=== PATIENT | male | born 1990 | race Caucasian/White ===

== ENCOUNTER 2020-01-07 09:46 | Inpatient (IN) | payer MEDICAID, OTHER ==
[~2020-01-07] VITALS: Ht 170.2 cm; Wt 67.5 kg
[2020-01-07 10:42] LABS: AMPHET/METH SCREEN,URINE NEGATIVE (NEGATIVE); BARBITURATE SCREEN, URINE NEGATIVE (NEGATIVE); BENZODIAZEPINES SCREEN,URINE NEGATIVE (NEGATIVE); CANNABINOID SCREEN,URINE POSITIVE (NEGATIVE); COCAINE SCREEN,URINE POSITIVE (NEGATIVE); METHADONE SCREEN, URINE NEGATIVE (NEGATIVE); OPIATE SCREEN,URINE NEGATIVE (NEGATIVE)
[2020-01-07 10:44] LABS: PHENCYCLIDINE SCREEN,URINE NEGATIVE (NEGATIVE)
[2020-01-07 10:52] LABS: BASOPHILS % (AUTO) 0.7 % (0.0-2.0); EOSINOPHILS % (AUTO) 2.6 % (1.0-6.0); HEMATOCRIT 45.5 % (41-53); HEMOGLOBIN 15.7 g/dL (13.5-17.5); LYMPHOCYTES # (AUTO) 1.5 K/uL (1.0-4.8); MEAN CORPUSCULAR HGB CONC 34.5 G/dL (31.0-37.0); MEAN CORPUSCULAR VOLUME 98 fL (80-100); MONOCYTES # (AUTO) 0.3 K/uL (0.1-1.0); MONOCYTES % (AUTO) 5.4 % (2.0-9.0); NEUTROPHILS # (AUTO) 4.3 K/uL (1.8-7.7); NEUTROPHILS % (AUTO) 68.3 % (40.0-70.0); PLATELET COUNT (AUTO) 232 K/uL (150-450); RED BLOOD CELL COUNT(AUTO) 4.63 MIL/uL (4.50-5.90); RED CELL DISTRIBUTION WIDTH 12.4 % (11.5-14.5)
[2020-01-07 10:58] LABS: ANION GAP 10 mmol/L (8-16); CARBON DIOXIDE 28 mmol/L (22-29); CHLORIDE 109 mmol/L (98-107); CREATININE 0.89 mg/dL (0.60-1.30); GLOMERULAR FILTR. RATE CALC > 60 mL/min (>60); GLUCOSE,RANDOM 82 mg/dL (70-110); POTASSIUM 4.2 mmol/L (3.5-5.1); SODIUM SERUM 147 mmol/L (136-145); UREA NITROGEN, BLOOD 10 mg/dL (7-18)
[2020-01-07 11:04] LABS: ALANINE AMINOTRANSFERASE 39 U/L (12-78); ALBUMIN 4.1 g/dL (3.4-5.0); ALKALINE PHOSPHATASE 77 U/L (46-116); ASPARTATE AMINOTRANSFERASE 24 U/L (15-37); BILIRUBIN,TOTAL 0.7 mg/dL (0.1-1.0); TOTAL PROTEIN, SERUM 7.6 g/dL (6.4-8.2)
[2020-01-07] MEDS ORDERED: GuaiFENesin/D-METHORPHAN [SUGAR-FREE] 200-20MG/10 ML SYRUP UDCUP PO PRN (12:00)
[2020-01-07] MEDS ORDERED: LORazepam 2 MG TABLET PO PRN (12:00)
[2020-01-07] MEDS ORDERED: TUBERCULIN, PURIFIED PROTEIN DERIVATIVE 5 TU/0.1 ML SYRINGE ID ONE (12:00)
[2020-01-07] MEDS ORDERED: LOPERAMIDE HCL 2 MG CAPSULE PO PRN (12:00)
[2020-01-07] MEDS ORDERED: MAG HYDROX/AL HYDROX/SIMETH ES 30 ML SUSPENSION UDCUP PO PRN (12:00)
[2020-01-07] MEDS ORDERED: HydrOXYzine PAMOATE 50 MG CAPSULE PO PRN (12:00)
[2020-01-07] MEDS ORDERED: OLANZapine 5 MG RAPDIS TABLET PO PRN (12:00)
[2020-01-07] MEDS ORDERED: MAGNESIUM HYDROXIDE SUSPENSION 30 ML UDCUP PO PRN (12:00)
[2020-01-07] MEDS ORDERED: PROMETHAZINE HCL 25 MG TABLET PO PRN (12:00)
[2020-01-07 14:56] LABS: COVID AG,FIA SOURCE NASOPHARYNGEAL
[2020-01-07] MEDS ORDERED: INFLUENZA VIRUS VACCINE QVS 2020-21 (6MO+)/PF 60 MCG/0.5 ML SYRINGE IM ONE (20:00)
[2020-01-07] MEDS: THIAMINE 100 MG TABLET PO SCH (20:20)
[2020-01-07 20:24] VITALS: BP 119/66
[2020-01-07] MEDS ORDERED: OLANZapine 5 MG RAPDIS TABLET PO SCH (21:00)
[2020-01-07] MEDS: ACETAMINOPHEN 325 MG TABLET PO PRN (21:32)
[2020-01-08 05:31] VITALS: BP 138/81
[2020-01-08 07:54] LABS: HEMOGLOBIN A1C 4.9 % (3.8-5.6)
[2020-01-08 08:12] LABS: CHOL/HDL RATIO 2.7 (4.2-7.3); FREE T4 (FREE THYROXINE) 1.04 ng/dL (0.76-1.46); THYROID STIMULATING HORMONE 2.2 uIU/mL (0.36-3.74)
[2020-01-08 08:44] VITALS: BP 133/87
[2020-01-08] MEDS: THIAMINE 100 MG TABLET PO SCH ×2 (09:14→16:32)
[2020-01-08] MEDS: NALTREXONE HCL 50 MG TABLET PO SCH (09:14)
[2020-01-08] MEDS: FOLIC ACID 1 MG TABLET PO SCH (09:14)
[2020-01-08] MEDS: MULTIVITAMINS WITH MINERALS, THERAPEUTIC TABLET PO SCH (09:15)
[2020-01-08] MEDS: OMEGA-3/DHA/EPA/FISH OIL 1,000 MG CAPSULE PO SCH (09:15)
[2020-01-08] MEDS: ACETAMINOPHEN 325 MG TABLET PO PRN ×2 (10:36→17:11)
[2020-01-08 16:08] VITALS: BP 118/66
[2020-01-08] MEDS: BENZOCAINE 20% 11.9 GM GEL TP PRN ×2 (17:06→20:37)
[2020-01-08] MEDS: OLANZapine 10 MG RAPDIS TABLET PO SCH (20:22)
[2020-01-08] MEDS: ZOLPIDEM TARTRATE 10 MG TABLET PO PRN (20:37)
[2020-01-09 00:22] VITALS: BP 105/67
[2020-01-09] MEDS: BENZOCAINE 20% 11.9 GM GEL TP PRN (06:50)
[2020-01-09 07:11] VITALS: BP 120/68
[2020-01-09] MEDS: ACETAMINOPHEN 325 MG TABLET PO PRN (07:11)
[2020-01-09] MEDS: NALTREXONE HCL 50 MG TABLET PO SCH (08:32)
[2020-01-09] MEDS: FOLIC ACID 1 MG TABLET PO SCH (08:32)
[2020-01-09] MEDS: OMEGA-3/DHA/EPA/FISH OIL 1,000 MG CAPSULE PO SCH (08:32)
[2020-01-09] MEDS: THIAMINE 100 MG TABLET PO SCH ×2 (08:32→16:17)
[2020-01-09] MEDS: MULTIVITAMINS WITH MINERALS, THERAPEUTIC TABLET PO SCH (08:32)
[2020-01-09 12:45] VITALS: BP 103/60
[2020-01-09] MEDS ORDERED: OLAN10TA22 PO (15:05)
[2020-01-09] MEDS ORDERED: OMEG-135 PO (15:05)
[2020-01-09] MEDS ORDERED: NALT50TA PO (15:05)
[2020-01-09 16:32] VITALS: BP 127/74
[2020-01-09] MEDS: OLANZapine 10 MG RAPDIS TABLET PO SCH (20:25)
[2020-01-09] MEDS: ZOLPIDEM TARTRATE 10 MG TABLET PO PRN (22:11)
[2020-01-10 02:09] VITALS: BP 143/93
[2020-01-10 02:24] VITALS: BP 113/74
[2020-01-10] MEDS: BENZOCAINE 20% 11.9 GM GEL TP PRN (07:08)
[2020-01-10] MEDS: NALTREXONE HCL 50 MG TABLET PO SCH (08:08)
[2020-01-10] MEDS: MULTIVITAMINS WITH MINERALS, THERAPEUTIC TABLET PO SCH (08:08)
[2020-01-10] MEDS: OMEGA-3/DHA/EPA/FISH OIL 1,000 MG CAPSULE PO SCH (08:08)
[2020-01-10] MEDS: THIAMINE 100 MG TABLET PO SCH (08:08)
[2020-01-10] MEDS: FOLIC ACID 1 MG TABLET PO SCH (08:08)
[2020-01-10 08:22] VITALS: BP 124/94
== END 2020-01-10 10:50 | disposition home or self-care (01) | DRG 754 ==
LOC: EMS 09:49 → B2S 11:57
PROVIDERS: ADMIT Psychiatry & Neurology Psychiatry; ATTEND Psychiatry & Neurology Psychiatry
DX: F32.9 Major depressive disorder, single episode, unspecified (principal); Z87.891 Personal history of nicotine dependence; Z55.9 Problems related to education and literacy, unspecified; Z59.9 Problem related to housing and economic circumstances, unspecified; Z65.3 Problems related to other legal circumstances; Z20.828 Contact with and (suspected) exposure to other viral communicable diseases
CPT/HCPCS: 83036; 84439; 84443; 86592; 87426; 90686; G0480